=== PATIENT | male | born 1970 | race Caucasian/White ===

== ENCOUNTER 2020-09-22 08:53 | Emergency (ER) | payer BC, OTHER ==
[~2020-09-22] VITALS: Ht 175.3 cm; Wt 81.6 kg
[~2020-09-22 08:53] MED LIST: LEVE750T10 PO; MELO-107 PO
--- NOTE | 2020-09-22 08:55 | NUR ---
DR Kay at the bedside for MSE.
[2020-09-22] MEDS ORDERED: KETOROLAC TROMETHAMINE 60 MG INJ IM ONE ×2 (09:09→09:15)
[2020-09-22] MEDS ORDERED: ONDANSETRON 4 MG/2 ML VIAL IM ONE (09:45)
[2020-09-22] MEDS ORDERED: HYDROMORPHONE 1 MG/1 ML DISP.SYRIN IM ONE (09:45)
--- NOTE | 2020-09-22 09:45 | NUR ---
Crutches dispensed. Pt instructed on proper use of crutches. Patient able to demonstrate correct use of crutches.
[2020-09-22 09:48] VITALS: BP 131/86
--- NOTE | 2020-09-22 09:54 | NUR ---
Patient discharged to home in stable condition. Written and verbal after care instructions given. Patient verbalizes understanding of instructions. Stressed follow up or return to ER for worsening s/s.
== END 2020-09-22 09:54 | disposition home or self-care (01) ==
LOC: ER 08:53
DX: S82.144A Nondisplaced bicondylar fracture of right tibia, initial encounter for closed fracture (principal); S76.111A Strain of right quadriceps muscle, fascia and tendon, initial encounter; W18.49XA Other slipping, tripping and stumbling without falling, initial encounter; Y93.02 Activity, running; Y92.89 Other specified places as the place of occurrence of the external cause; G40.909 Epilepsy, unspecified, not intractable, without status epilepticus; Z79.899 Other long term (current) drug therapy; M25.461 Effusion, right knee
CPT/HCPCS: 29505; 73564; 96372; 99283; J1885; A4663

== ENCOUNTER 2022-12-12 13:09 | Emergency (ER) | payer BC, OTHER ==
[~2022-12-12] VITALS: Ht 167.6 cm; Wt 81.6 kg
--- NOTE | 2022-12-12 13:36 | NUR ---
PT IS IN ROOM #1B. DR GOODEN EVALUATED THE PT.
[2022-12-12] MEDS ORDERED: IBUP-1955 PO (13:51)
[2022-12-12 14:04] VITALS: BP 122/89
== END 2022-12-12 14:10 | disposition home or self-care (01) ==
LOC: ER 13:09
DX: S52.502A Unspecified fracture of the lower end of left radius, initial encounter for closed fracture (principal); Z79.899 Other long term (current) drug therapy; W21.02XA Struck by soccer ball, initial encounter; Y93.66 Activity, soccer; Y92.89 Other specified places as the place of occurrence of the external cause; Y99.8 Other external cause status
CPT/HCPCS: 73130; A4663

== ENCOUNTER 2024-12-25 00:48 | Emergency (ER) | payer BC ==
[~2024-12-25] VITALS: Ht 175.3 cm; Wt 86.2 kg
[~2024-12-25 00:48] MED LIST changes: +IBUP-1955 PO
[2024-12-25 01:11] LABS: BASOPHILS % (AUTO) 0.2 % (0.0-2.0); EOSINOPHILS # (AUTO) 0.9 K/uL (0.0-0.7); HEMATOCRIT 45.7 % (36.7-47.1); LYMPHOCYTES # (AUTO) 2.8 K/uL (0.8-4.8); LYMPHOCYTES % (AUTO) 28.5 % (20.5-51.5); MEAN CORPUSCULAR HEMOGLOBIN 30.8 uug (23.8-33.4); MEAN CORPUSCULAR HGB CONC 35 g/dL (32.5-36.3); MEAN CORPUSCULAR VOLUME 87.9 fL (73.0-96.2); MONOCYTES # (AUTO) 0.8 K/uL (0.1-1.30); MONOCYTES % (AUTO) 8.1 % (0.0-11.0); NEUTROPHILS # (AUTO) 5.3 K/uL (1.8-8.9); NEUTROPHILS % (AUTO) 54.2 % (38.5-71.5); PLATELET COUNT (AUTO) 217 K/uL (152-348); RED BLOOD CELL COUNT(AUTO) 5.19 MIL/uL (4.06-5.63); RED CELL DISTRIBUTION WIDTH 13.2 % (12.1-16.2); WHITE BLOOD COUNT (AUTO) 9.9 K/uL (3.6-10.2)
[2024-12-25] MEDS ORDERED: METOCLOPRAMIDE HCL 10 MG TABLET ONE (01:12)
[2024-12-25] MEDS ORDERED: ASPIRIN 81 MG TAB.CHEW ONE (01:12)
[2024-12-25] MEDS: ASPIRIN 81 MG TAB.CHEW PO ONE (01:16)
[2024-12-25] MEDS: METOCLOPRAMIDE HCL 10 MG TABLET PO ONE (01:16)
[2024-12-25 01:19] LABS: DIFFERENTIAL COMMENT 1
[2024-12-25 01:27] LABS: CALCIUM 8.7 mg/dL (8.5-10.1); CARBON DIOXIDE 27 mmol/L (21-32); CHLORIDE 104 mmol/L (98-107); CREATININE 1.1 mg/dL (0.6-1.3); GLUCOSE 124 mg/dL (74-106); SODIUM SERUM 141 mmol/L (136-145); UREA NITROGEN, BLOOD 15 mg/dL (7-18)
[2024-12-25 01:40] LABS: ALANINE AMINOTRANSFERASE 31 U/L (16-63); ALBUMIN 3.8 g/dL (3.4-5.0); ALKALINE PHOSPHATASE 90 U/L (50-136); ASPARTATE AMINOTRANSFERASE 25 U/L (15-37); BILIRUBIN,DIRECT 0.1 mg/dL (0.0-0.2); BILIRUBIN,TOTAL 0.4 mg/dL (0.2-1.0); NT-PRO BNP 38 pg/mL (0-125); TOTAL PROTEIN, SERUM 7.3 g/dL (6.4-8.2)
[2024-12-25 03:39] VITALS: BP 141/86; O2SAT 100
== END 2024-12-25 03:39 | disposition home or self-care (01) ==
LOC: ER 00:48
DX: R07.89 Other chest pain (principal); Z86.69 Personal history of other diseases of the nervous system and sense organs; Z87.39 Personal history of other diseases of the musculoskeletal system and connective tissue
CPT/HCPCS: 36415; 71045; 84484; 85025; 85730; A4606; A4663; J8597